=== PATIENT | female | born 1955 | race African-American/Black ===

== ENCOUNTER → 2020-07-13 | Outpatient (CLI) | payer MEDICAID ==
[~2020-07-13] MED LIST: LIDOCAINE 1%/EPI 1:100,000 20 ML VIAL. INJ ONE; LIDOCAINE 2%/EPI 1:100,000 20 ML VIAL. INJ ONE
--- NOTE | 2020-07-13 17:19 | RAD ---
Examination: 1. Left breast stereotactic biopsy of a cluster of calcifications. 2. Left digital postprocedure mammogram. INDICATION: 65-year-old woman with a suspicion cluster of calcifications in the posterior lateral left breast recommended for stereotactic biopsy. COMPARISON: Left screening mammogram of 06/14/2020 left diagnostic mammogram of 06/20/2020. TECHNIQUE AND FINDINGS: Informed consent was obtained and an appropriate procedural pause observed. Using standard sterile technique, stereotactic mammographic imaging guidance and local anesthesia using 2 percent lidocaine with epinephrine deeper in the breast tissue and 1 percent lidocaine to the skin surface, multiple (4) vacuum assisted core biopsy samples using a 9 gauge standard Eviva needle were obtained of the calcifications in the lateral right breast using a lateral approach (initial attempt at biopsy from a craniocaudal approach was not possible due to just barely insufficient breast tissue thickness). Satisfactory tissue sampling was confirmed with radiograph of the specimen showing targeted calcifications and the needle was removed, a filomena-shaped biopsy marker was deployed at the biopsy site, and hemostasis ensured with direct breast compression for 10 minutes. Thereafter, a postprocedure mammogram was obtained. Digital left postprocedure mammogram in the CC and true lateral projections shows satisfactory deployment of the right-shaped biopsy marker at the biopsy site with no visible residual calcifications at the target. No postbiopsy hematoma is evident either. Patient tolerated the procedure without incident. There were no apparent complications. The puncture site was dressed and postprocedure instructions were reviewed prior to patient discharge to follow up with her referring physician. IMPRESSION: Successful left breast stereotactic biopsy of calcifications in the lateral posterior breast. No apparent complications. Pathology results are pending. An addendum will be issued once pathology results become available. Electronically signed by: Aneesh Bryan MD (07/13/2020 5:16 PM) [id number]
== END | disposition home or self-care (01) ==
LOC: MAMMO 13:40
PROVIDERS: ATTEND Family Medicine
DX: R92.0 Mammographic microcalcification found on diagnostic imaging of breast (principal)
CPT/HCPCS: 19081; 77022; 77065; C1713; J3490; 19085